=== PATIENT | male | born 1975 | race Caucasian/White ===

== ENCOUNTER 2017-08-03 18:44 | Emergency (ER) | payer BC, OTHER ==
[~2017-08-03] VITALS: Ht 182.9 cm; Wt 133.8 kg
[2017-08-03] MEDS ORDERED: methylPREDNISolone SOD SUCC 125 MG/2 ML VL ONE (19:05)
[2017-08-03] MEDS ORDERED: diphenhdrAMINE HCL 50 MG/1 ML VL ONE (19:05)
[2017-08-03] MEDS ORDERED: FAMOTIDINE (10MG/ML) 2ML VL IV ONE (19:15)
[2017-08-03] MEDS ORDERED: diphenhdrAMINE HCL 50 MG/1 ML VL IV ONE (19:15)
[2017-08-03] MEDS ORDERED: methylPREDNISolone SOD SUCC 125 MG/2 ML VL IV ONE (19:15)
[2017-08-03] MEDS ORDERED: ONDANSETRON HCL 4 MG/2 ML VIAL IV ONE (19:30)
[2017-08-03] MEDS ORDERED: SODIUM CHLORIDE 0.9% 1,000 ML IV ONE ×2 (19:30→20:00)
[2017-08-03] MEDS ORDERED: EPINEPHrine HCL 1 MG/1 ML AMP SC ONE (20:00)
[2017-08-03 21:05] VITALS: BP 132/82
== END 2017-08-03 21:09 | disposition home or self-care (01) ==
LOC: ER 18:44
DX: T78.40XA Allergy, unspecified, initial encounter (principal); T78.3XXA Angioneurotic edema, initial encounter; J45.909 Unspecified asthma, uncomplicated
CPT/HCPCS: 96361; 96374; 96375; 99284; J0171; J1200; J2405; J2930; J3490